=== PATIENT | male | born 1990 | race Caucasian/White ===

== ENCOUNTER 2017-07-03 15:26 | Emergency (ER) | payer OTHER ==
--- NOTE | 2017-07-03 16:45 | EDM.PDOC ---
ED HPI GENERAL MEDICAL PROBLEM - General Chief Complaint: Syncope Stated Complaint: SYNCOPAL EPISODE Time Seen by Provider: 07/03/17 16:00 Source of Information: Reports: Patient, Family History Limitations: Reports: No Limitations - History of Present Illness INITIAL COMMENTS - FREE TEXT/NARRATIVE: 26 y.o.w.m came to the ed after he passed out for 25 sec while in the car with his mom. Similar symptoms occurred last April. Pt saw roxanna STUBBS who sent him to the ED for possible Sz. Pt is now in his usual state of health BP 146/78 pulse 78 Temp 36.6 RR 14 Puse ox 100% on RA Onset: Today Onset Date: 07/03/17 Onset Time: 08:00 Duration: Intermittent Location: Reports: Generalized Quality: Reports: Other (unresponsive) Severity: Mild Improves with: Reports: Rest Context: Reports: Other (unresponsive) - Related Data Allergies Allergy/AdvReac Type Severity Reaction Status Date / Time No Known Allergies Allergy Verified 07/03/17 15:57 Home Meds: Home Meds Dexmethylphenidate HCl [Dexmethylphenidate HCl ER] 25 mg PO ASDIRECTED 07/03/17 [History] FLUoxetine [PROzac] 20 mg PO ASDIRECTED 07/03/17 [History] Past Medical History HEENT History: Reports: Impaired Vision Other HEENT History: wears glasses Psychiatric History: Reports: Autism, Depression - Infectious Disease History Infectious Disease History: Reports: Chicken Pox - Past Surgical History HEENT Surgical History: Reports: Tonsillectomy Social & Family History - Family History Family Medical History: Noncontributory - Tobacco Use Smoking Status *Q: Never Smoker Second Hand Smoke Exposure: No - Caffeine Use Caffeine Use: Reports: Soda - Recreational Drug Use Recreational Drug Use: No ED ROS GENERAL - Review of Systems Review Of Systems: See Below Constitutional: Reports: No Symptoms HEENT: Reports: No Symptoms Respiratory: Reports: No Symptoms Cardiovascular: Reports: No Symptoms Endocrine: Reports: No Symptoms GI/Abdominal: Reports: No Symptoms : Reports: No Symptoms Musculoskeletal: Reports: No Symptoms Skin: Reports: No Symptoms Neurological: Reports: No Symptoms Psychiatric: Reports: No Symptoms, Other Immunologic: Reports: No Symptoms ED EXAM, NEURO - Physical Exam Exam: See Below Exam Limited By: No Limitations General Appearance: Alert, WD/WN, No Apparent Distress Eye Exam: Bilateral Eye: Normal Inspection Ears: Normal External Exam Nose: Normal Inspection Throat/Mouth: Normal Inspection Head Exam: Atraumatic, Normocephalic Neck: Normal Inspection, Supple, Non-Tender Respiratory/Chest: No Respiratory Distress, Lungs Clear, Normal Breath Sounds, No Accessory Muscle Use Cardiovascular: Normal Peripheral Pulses GI/Abdominal: Normal Bowel Sounds, Soft, Non-Tender (Male) Exam: Deferred Rectal (Males) Exam: Deferred Neurological: Alert, Normal Mood/Affect, Normal Dorsiflexion, CN II-XII Intact Back Exam: Normal Inspection, Full Range of Motion Extremities: Normal Inspection, Normal Range of Motion, Non-Tender Psychiatric: Normal Affect, Normal Mood Skin Exam: Warm, Dry, Intact, Normal Color, No Rash EKG INTERPRETATION EKG Date: 07/03/17 Time: 16:20 Rhythm: NSR Rate (Beats/Min): 85 [place]: LAD-Left [place] Deviation P-Wave: Present QRS: Normal ST-T: Normal QT: Normal Comparison: NA - No Prior EKG Course - Vital Signs Text/Narrative:: 26 y.o.w.m came to the ed after he passed out for 25 sec while in the car with his mom. Similar symptoms occurred last April. Pt saw roxanna STUBBS who sent him to the ED for possible Sz. Pt is now in his usual state of health BP 146/78 pulse 78 Temp 36.6 RR 14 Puse ox 100% on RA PE: Nl physical exam LABS: CBC. BMP nl Glc was 77 Impression: SZ vs syncopal episode. Fasting Glc 77. Lab: CBC, BMP NL, GCL was 77. ECG: NSR 4.29 PM consultation: Dr. Ramos, Neurologist, [facility]: EKG, EEG, MRI now. As soon the results are back, pt should make an appointment with the neuro clinic. Plan: D/C with instructions Last Recorded V/S: Last Vital Signs Temp 36.6 C 07/03/17 16:00 Pulse 89 07/03/17 17:01 Resp 16 07/03/17 17:01 BP 124/82 07/03/17 17:01 Pulse Ox 100 07/03/17 17:01 - Orders/Labs/Meds Labs: Laboratory Tests 07/03/17 07/03/17 07/03/17 Range/Units 16:05 16:05 16:05 WBC 5.1 (4.5-12.0) X10-3/uL RBC 5.79 H (4.30-5.75) x10(6)uL Hgb 16.5 H (11.5-15.5) g/dL Hct 49.6 (30.0-51.3) % MCV 85.7 (80-96) fL MCH 28.4 (27.7-33.6) pg MCHC 33.2 (32.2-35.4) g/dL RDW 12.9 (11.5-15.5) % Plt Count 319 (125-369) X10(3)uL MPV 7.0 L (7.4-10.4) fL Neut % (Auto) 66.1 (46-82) % Lymph % (Auto) 28.7 (13-37) % [place] % (Auto) 4.2 (4-12) % Eos % (Auto) 0 L (1.0-5.0) % Baso % (Auto) 1 (0-2) % Neut # (Auto) 3.4 (1.6-8.3) # Lymph # (Auto) 1.5 (0.6-5.0) # [place] # (Auto) 0.2 (0.0-1.3) # Eos # (Auto) 0.0 (0.0-0.8) # Baso # (Auto) 0.0 (0.0-0.2) # Sodium 145 (135-145) mmol/L Potassium 4.0 (3.5-5.3) mmol/L Chloride 105 (100-110) mmol/L Carbon Dioxide 31 (21-32) mmol/L BUN 12 (7-18) mg/dL Creatinine 1.0 (0.70-1.30) mg/dL Est Cr Clr Drug Dosing 120.27 mL/min Estimated GFR (MDRD) > 60 (>60) BUN/Creatinine Ratio 12.0 (9-20) Glucose 77 L (80-116) mg/dL Calcium 9.6 (8.6-10.2) mg/dL Ethyl Alcohol < 0.03 (<0.03) % Departure - Departure Time of Disposition: 16:52 Disposition: Home, Self-Care 01 Condition: Good Clinical Impression: Syncopal episodes Qualifiers: Encounter type: subsequent encounter - Discharge Information Referrals: Lui Mitchell MD [Primary Care Provider] - Forms: ED Department Discharge Additional Instructions: Please get an MRI Head with and without contrast on 07/05/2017 at 9.30 am and an EEG on 07/05/2017 1 pm at [facility] . Please make sure the MRI imaging is transferred to [facility] before you have make an appointment with Neurology at [facility].
== END 2017-07-03 16:59 | disposition home or self-care (01) ==
LOC: FB.ED 15:26
DX: R55 Syncope and collapse (principal)
CPT/HCPCS: 36415; 80048; 85025; 93005; 99284; G0480